=== PATIENT | female | born 1955 | race Caucasian/White ===

== ENCOUNTER 2019-10-28 09:49 | Day surgery (SDC) | payer MEDICARE, BC ==
[2019-10-28] MEDS ORDERED: Marcaine 0.5% SDV 10 ML IJ ONE (09:50)
[2019-10-28] MEDS ORDERED: Xylocaine 1% Vial 30 ML PF IJ ONE (09:50)
[2019-10-28] MEDS ORDERED: DIPRIVAN 200 MG/20 ML IV ONE ×2 (11:06→11:17)
[2019-10-28] MEDS ORDERED: Ketamine HCl 50 MG/ML ONE (11:06)
--- NOTE | 2019-10-28 13:03 | XRAY ---
Indication: Right knee genicular nerve block. Intraoperative fluoroscopy was provided for 23 seconds. 3 digital spot images of the right knee submitted for interpretation demonstrates anterior needle tips projecting adjacent to the medial/lateral femoral condyles and medial tibial plateau. Correlate with intraoperative findings/report. Incidental partially visualized total knee arthroplasty.
--- NOTE | 2019-10-28 13:05 | XRAY ---
Indication: Left knee genicular nerve block. Intraoperative fluoroscopy was provided for 17 seconds. 3 digital spot images of the left knee submitted for interpretation demonstrates anterior needle tips projecting adjacent to the medial/lateral femoral condyles and medial tibial plateau. Correlate with intraoperative findings/report. Incidental partially visualized total knee arthroplasty.
--- NOTE | 2019-10-28 13:05 | XRAY ---
23 seconds fluoroscopy time in surgery for right genicular nerve block.
[2019-10-28] MEDS ORDERED: Lactated Ringers 1,000 ML IV ONE (13:49)
--- NOTE | 2019-10-28 14:12 | XRAY ---
17 seconds fluoroscopy time in surgery for left genicular nerve block.
== END 2019-10-28 11:45 | disposition home or self-care (01) ==
LOC: SDC-PAIN 09:49
PROVIDERS: ATTEND Psychiatry & Neurology Pain Medicine
DX: M17.0 Bilateral primary osteoarthritis of knee (principal); I10 Essential (primary) hypertension; R51 Headache; K21.9 Gastro-esophageal reflux disease without esophagitis; I51.89 Other ill-defined heart diseases; Z79.899 Other long term (current) drug therapy
CPT/HCPCS: 64454; 73560; 77002; J2001; J2704

== ENCOUNTER 2019-11-25 10:01 | Day surgery (SDC) | payer MEDICARE, BC ==
[2019-11-25] MEDS ORDERED: Marcaine 0.5% SDV 10 ML IJ ONE (10:02)
[2019-11-25] MEDS ORDERED: Depo-Medrol 40 MG/ML IM ONE (10:02)
[2019-11-25] MEDS ORDERED: Xylocaine 1% Vial 30 ML PF IJ ONE (10:02)
[2019-11-25] MEDS ORDERED: Ketamine HCl 50 MG/ML ONE (11:10)
[2019-11-25] MEDS ORDERED: DIPRIVAN 200 MG/20 ML IV ONE ×2 (11:10→11:28)
[2019-11-25] MEDS ORDERED: Lactated Ringers 1,000 ML IV ONE (12:36)
--- NOTE | 2019-11-25 14:09 | XRAY ---
Indication: Left knee genicular nerve block. Intraoperative fluoroscopy was provided for 26 seconds. 2 digital spot images submitted for interpretation demonstrates anterior needle tips projecting adjacent to the medial/lateral femoral condyles and medial tibial plateau. Correlate with intraoperative findings/report. Incidental partially visualized total knee arthroplasty
--- NOTE | 2019-11-25 14:12 | XRAY ---
26 seconds fluoroscopy time in surgery for left genicular nerve block.
== END 2019-11-25 11:47 | disposition home or self-care (01) ==
LOC: SDC-PAIN 10:01
PROVIDERS: ATTEND Psychiatry & Neurology Pain Medicine
DX: M17.12 Unilateral primary osteoarthritis, left knee (principal); I10 Essential (primary) hypertension; K21.9 Gastro-esophageal reflux disease without esophagitis; I05.9 Rheumatic mitral valve disease, unspecified; Z79.899 Other long term (current) drug therapy
CPT/HCPCS: 64624; 73560; 77002; J1030; J2001; J2704

== ENCOUNTER 2019-12-23 13:13 | Day surgery (SDC) | payer MEDICARE, BC ==
[~2019-12-23 13:13] MED LIST: DIPRIVAN 200 MG/20 ML IV ONE; Ketamine HCl 50 MG/ML ONE
[2019-12-23] MEDS ORDERED: Xylocaine 1% Vial 30 ML PF IJ ONE (13:14)
[2019-12-23] MEDS ORDERED: Marcaine 0.5% SDV 10 ML IJ ONE (13:14)
--- NOTE | 2019-12-23 16:29 | XRAY ---
Indication: Right knee genicular nerve ablation. Intraoperative fluoroscopy was provided for 29 seconds. 3 digital spot images submitted for interpretation demonstrates anterior needle tips projecting medial/lateral supracondylar and medial tibial plateau of the right knee. Correlate with intraoperative findings/report. Incidental incompletely visualized total knee arthroplasty.
[2019-12-23] MEDS ORDERED: Lactated Ringers 1,000 ML IV ONE (16:38)
--- NOTE | 2019-12-23 16:39 | XRAY ---
29 seconds fluoroscopy time in surgery for right genicular nerve ablation.
== END 2019-12-23 14:41 | disposition home or self-care (01) ==
LOC: SDC-PAIN 13:13
PROVIDERS: ATTEND Psychiatry & Neurology Pain Medicine
DX: M17.11 Unilateral primary osteoarthritis, right knee (principal); I10 Essential (primary) hypertension; K21.9 Gastro-esophageal reflux disease without esophagitis; R51 Headache; Z79.899 Other long term (current) drug therapy
CPT/HCPCS: 64624; 73560; 77002; J2001; J2704

== ENCOUNTER 2020-07-27 11:15 | Day surgery (SDC) | payer MEDICARE, BC ==
[2020-07-27] MEDS ORDERED: Depo-Medrol 40 MG/ML IM ONE (11:16)
[2020-07-27] MEDS ORDERED: BUPIVACAINE 0.5% VIAL IJ ONE (11:16)
[2020-07-27] MEDS ORDERED: DIPRIVAN 200 MG/20 ML IV ONE (13:34)
[2020-07-27] MEDS ORDERED: Ketamine HCl 50 MG/ML ONE (13:34)
--- NOTE | 2020-07-27 14:21 | XRAY ---
Indication: Left shoulder injection. Intraoperative fluoroscopy was provided for 13 seconds. 2 digital spot images submitted for interpretation demonstrates needle tip projecting over the left glenohumeral joint superiorly. Small amount of contrast injected for needle tip placement. Correlate with intraoperative findings/report.
--- NOTE | 2020-07-27 14:21 | XRAY ---
13 seconds fluoroscopy time in surgery for intra-articular injection of the right shoulder.
[2020-07-27] MEDS ORDERED: Lactated Ringers 1,000 ML IV ONE (14:38)
== END 2020-07-27 13:57 | disposition home or self-care (01) ==
LOC: SDC-PAIN 11:15
PROVIDERS: ATTEND Psychiatry & Neurology Pain Medicine
DX: M19.012 Primary osteoarthritis, left shoulder (principal); I10 Essential (primary) hypertension; R51.9 Headache, unspecified; K21.9 Gastro-esophageal reflux disease without esophagitis; I05.9 Rheumatic mitral valve disease, unspecified; Z79.899 Other long term (current) drug therapy
CPT/HCPCS: 20610; 73030; 77002; J1030; J2704; Q9966

== ENCOUNTER 2021-05-10 14:37 | Day surgery (SDC) | payer MEDICARE, BC ==
[2021-05-10] MEDS ORDERED: Sodium Chloride 0.9% 10 ML FLUSH Syringe IJ ONE (14:38)
[2021-05-10] MEDS ORDERED: Depo-Medrol 40 MG/ML IM ONE (14:38)
[2021-05-10] MEDS ORDERED: Xylocaine 1% Vial 30 ML PF IJ ONE (14:38)
[2021-05-10] MEDS ORDERED: DIPRIVAN 200 MG/20 ML IV ONE ×2 (17:13→17:38)
[2021-05-10] MEDS ORDERED: Lactated Ringers 1,000 ML IV ONE (17:34)
--- NOTE | 2021-05-10 19:19 | XRAY ---
Indication: Lumbar GUERO. Intraoperative fluoroscopy provided for 1 minute 4 seconds. 2 digital spot images submitted for interpretation demonstrates posterior midline needle tip projecting just posterior to L3-L4 interspace. Small amount of contrast injected for needle tip placement. Correlate with intraoperative findings/report.
--- NOTE | 2021-05-11 12:04 | XRAY ---
1 minute and 4 seconds fluoroscopy time in surgery for lumbar GUERO.
== END 2021-05-10 18:15 | disposition home or self-care (01) ==
LOC: SDC-PAIN 14:37
PROVIDERS: ATTEND Psychiatry & Neurology Pain Medicine
DX: M54.16 Radiculopathy, lumbar region (principal); Z79.891 Long term (current) use of opiate analgesic
CPT/HCPCS: 62323; 72100; 77003; J1030; J2001; J2704; Q9966

== ENCOUNTER 2021-06-08 09:55 | Day surgery (SDC) | payer MEDICARE, BC ==
[2021-06-08] MEDS ORDERED: LIDOCAINE HCL 2% 100 MG/5 ML IJ ONE (09:56)
[2021-06-08] MEDS ORDERED: DIPRIVAN 200 MG/20 ML IV ONE (11:53)
--- NOTE | 2021-06-08 12:27 | XRAY ---
Indication: Bilateral L4-S1 MBB. Intraoperative fluoroscopy provided for 22 seconds. Single digital spot image submitted for interpretation demonstrates posterior needle tips projecting over the expected left and right L4-S1 S1 nerve roots. Correlate with intraoperative findings/report.
[2021-06-08] MEDS ORDERED: Lactated Ringers 1,000 ML IV ONE (12:52)
--- NOTE | 2021-06-08 14:15 | XRAY ---
22 seconds fluoroscopy time in surgery for bilateral L4-S1 MBB.
== END 2021-06-08 12:22 | disposition home or self-care (01) ==
LOC: SDC-PAIN 09:55
PROVIDERS: ATTEND Psychiatry & Neurology Pain Medicine
DX: M47.816 Spondylosis without myelopathy or radiculopathy, lumbar region (principal); I10 Essential (primary) hypertension; Z79.899 Other long term (current) drug therapy
CPT/HCPCS: 64493; 64494; 72020; 77002; J2704

== ENCOUNTER 2021-06-28 10:22 | Day surgery (SDC) | payer MEDICARE, BC ==
[2021-06-28] MEDS ORDERED: BUPIVACAINE 0.5% VIAL IJ ONE (10:23)
[2021-06-28] MEDS ORDERED: Depo-Medrol 40 MG/ML IM ONE (10:23)
[2021-06-28] MEDS ORDERED: Lactated Ringers 1,000 ML IV ONE (12:18)
[2021-06-28] MEDS ORDERED: DIPRIVAN 200 MG/20 ML IV ONE (12:46)
[2021-06-28] MEDS ORDERED: MORPHINE SULFATE 2 MG INJ ONE (13:03)
--- NOTE | 2021-06-28 13:26 | XRAY ---
Indication: Bilateral L4-S1 MBB. Intraoperative fluoroscopy provided for 19 seconds. Single digital spot image submitted for interpretation demonstrates posterior needle tips projecting over the expected left and right L4-S1 nerve roots. Correlate with intraoperative findings/report.
--- NOTE | 2021-06-28 13:34 | XRAY ---
19 seconds of fluoroscopy was used in surgery for a bilateral L4-S1 MBB.
== END 2021-06-28 13:15 | disposition home or self-care (01) ==
LOC: SDC-PAIN 10:22
PROVIDERS: ATTEND Psychiatry & Neurology Pain Medicine
DX: M47.816 Spondylosis without myelopathy or radiculopathy, lumbar region (principal); I10 Essential (primary) hypertension; Z79.899 Other long term (current) drug therapy
CPT/HCPCS: 64493; 64494; 72020; 77002; J1030; J2270; J2704

== ENCOUNTER 2021-09-06 10:04 | Day surgery (SDC) | payer MEDICARE, BC ==
[2021-09-06] MEDS ORDERED: Depo-Medrol 40 MG/ML IM ONE (10:05)
[2021-09-06] MEDS ORDERED: Xylocaine 1% Vial 30 ML PF IJ ONE (10:05)
[2021-09-06] MEDS ORDERED: BUPIVACAINE 0.5% VIAL IJ ONE (10:05)
[2021-09-06] MEDS ORDERED: DIPRIVAN 200 MG/20 ML IV ONE ×2 (12:33→12:35)
[2021-09-06] MEDS ORDERED: Lactated Ringers 1,000 ML IV ONE (12:47)
--- NOTE | 2021-09-06 13:36 | XRAY ---
Indication: Right L4-S1 RFA. Intraoperative fluoroscopy provided for 30 seconds. 3 digital spot image submitted for interpretation demonstrates posterior needle tips projecting over the expected right L4-S1 nerve roots. Correlate with intraoperative findings/report.
--- NOTE | 2021-09-06 14:39 | XRAY ---
30 seconds fluoroscopy time in surgery for right L4-S1 RFA.
== END 2021-09-06 13:05 | disposition home or self-care (01) ==
LOC: SDC-PAIN 10:04
PROVIDERS: ATTEND Psychiatry & Neurology Pain Medicine
DX: M47.816 Spondylosis without myelopathy or radiculopathy, lumbar region (principal); Z79.899 Other long term (current) drug therapy
CPT/HCPCS: 64635; 64636; 72100; 77002; J1030; J2001; J2704

== ENCOUNTER 2021-09-13 09:59 | Day surgery (SDC) | payer MEDICARE, BC ==
[2021-09-13] MEDS ORDERED: Depo-Medrol 40 MG/ML IM ONE (10:00)
[2021-09-13] MEDS ORDERED: Xylocaine 1% Vial 30 ML PF IJ ONE (10:00)
[2021-09-13] MEDS ORDERED: BUPIVACAINE 0.5% VIAL IJ ONE (10:00)
[2021-09-13] MEDS ORDERED: Xylocaine-Mpf 2% 5 Ml Vial ONE (11:50)
[2021-09-13] MEDS ORDERED: DIPRIVAN 200 MG/20 ML IV ONE (11:50)
[2021-09-13] MEDS ORDERED: Lactated Ringers 1,000 ML IV ONE (11:58)
--- NOTE | 2021-09-13 14:25 | XRAY ---
Indication: Left L4-S1 RFA. Intraoperative fluoroscopy provided for 25 seconds. 4 digital spot image submitted for interpretation demonstrates posterior needle tips projecting over the expected left L4-S1 nerve roots. Correlate with intraoperative findings/report.
--- NOTE | 2021-09-13 14:49 | XRAY ---
25 seconds of fluoroscopy was used in surgery for a left L4-S1 RFA.
== END 2021-09-13 12:17 | disposition home or self-care (01) ==
LOC: SDC-PAIN 09:59
PROVIDERS: ATTEND Psychiatry & Neurology Pain Medicine
DX: M47.817 Spondylosis without myelopathy or radiculopathy, lumbosacral region (principal); I10 Essential (primary) hypertension; Z79.899 Other long term (current) drug therapy
CPT/HCPCS: 64635; 64636; 72100; 77002; J1030; J2001; J2704

== ENCOUNTER 2021-11-15 11:49 | Day surgery (SDC) | payer MEDICARE, BC ==
[2021-11-15] MEDS ORDERED: Sodium Chloride 0.9(Preservative Free) 10 ML IJ ONE (11:50)
[2021-11-15] MEDS ORDERED: Depo-Medrol 40 MG/ML IM ONE (11:50)
[2021-11-15] MEDS ORDERED: Lactated Ringers 1,000 ML IV ONE (13:22)
[2021-11-15] MEDS ORDERED: DIPRIVAN 200 MG/20 ML IV ONE ×2 (13:32→13:43)
[2021-11-15] MEDS ORDERED: Xylocaine-Mpf 2% 5 Ml Vial ONE (13:32)
--- NOTE | 2021-11-15 16:30 | XRAY ---
Indication: Right L4-S1 transforaminal GUERO. Intraoperative fluoroscopy provided for 1 minutes 9 seconds. 4 digital spot image submitted for interpretation demonstrates posterior needle tips projecting over the expected right L4 and L5 nerve roots. Small amount of contrast injected for needle tip placement. Correlate with intraoperative findings/report.
--- NOTE | 2021-11-15 16:45 | XRAY ---
1 minute 9 seconds of fluoroscopy was used in surgery for a right L4-S1 transforaminal GUERO.
== END 2021-11-15 14:07 | disposition home or self-care (01) ==
LOC: SDC-PAIN 11:49
PROVIDERS: ATTEND Psychiatry & Neurology Pain Medicine
DX: M54.16 Radiculopathy, lumbar region (principal); I10 Essential (primary) hypertension; Z79.899 Other long term (current) drug therapy
CPT/HCPCS: 64483; 64484; 72100; 77003; J1030; J2704; Q9966

== ENCOUNTER 2021-12-12 07:56 | Day surgery (SDC) | payer MEDICARE, BC ==
[2021-12-12] MEDS ORDERED: Epinephrine Preservative Free 1 MG/ML IJ ONE (07:57)
[2021-12-12] MEDS ORDERED: LIDOCAINE HCL 1% 50 MG/5 ML VL PF IJ ONE (07:57)
[2021-12-12] MEDS ORDERED: Lactated Ringers 1,000 ML IV ONE (08:50)
[2021-12-12] MEDS ORDERED: Ak-Dilate OPHTHALMIC*** 1.065 ML, Cyclogyl 1% OPHTH SOL 1.065 ML, GATIFLOXACIN 0.5% OPH... OP ONE ×4 (09:00)
[2021-12-12] MEDS ORDERED: TETRACAINE 0.5% STERI-UNIT SOL OP ONE ×2 (09:00)
[2021-12-12] MEDS ORDERED: BETADINE 5% OPHTHALMIC 30 ML OP ONE (09:00)
[2021-12-12] MEDS ORDERED: cefUROXime sodium 0.005 GM in Sodium Chloride Flush 30 ML*** 0.5 ML IJ ONE (09:00)
[2021-12-12] MEDS ORDERED: NON-FORMULARY ITEM OP ONE (09:00)
[2021-12-12] MEDS ORDERED: Lactated Ringers 1,000 ML IV SCH (09:00)
[2021-12-12] MEDS ORDERED: Xylocaine-Mpf 2% 5 Ml Vial ONE (10:03)
[2021-12-12] MEDS ORDERED: DIPRIVAN 200 MG/20 ML IV ONE (10:04)
[2021-12-12 10:48] VITALS: O2SAT 98
[2021-12-12] MEDS ORDERED: Zofran 4 MG/2 ML VIAL IV PRN (12:00)
[2021-12-12] MEDS ORDERED: ACETAZOLAMIDE 250 MG TABLET PO ONE (12:00)
[2021-12-12 13:49] VITALS: BP 121/68; PULSE 63
== END 2021-12-12 11:15 | disposition home or self-care (01) ==
LOC: SDC 07:56
PROVIDERS: ATTEND Ophthalmology
DX: H25.811 Combined forms of age-related cataract, right eye (principal)
CPT/HCPCS: C1780; J0171; J2001; J2704; A9270-GY

== ENCOUNTER 2022-08-24 06:00 | Day surgery (SDC) | payer MEDICARE, BC ==
[2022-08-24] MEDS ORDERED: Kenalog-40 IM ONE (06:01)
[2022-08-24] MEDS ORDERED: CLINDAMYCIN-D5W 900 MG/50 ML*** 900 MG/50 ML BAG IV STA (06:02)
[2022-08-24] MEDS ORDERED: Lactated Ringers 1,000 ML IV SCH (06:30)
[2022-08-24] MEDS ORDERED: Versed 2 MG/2 ML Injection ONE (07:07)
[2022-08-24] MEDS ORDERED: Xylocaine-Mpf 2% 5 Ml Vial ONE (07:07)
[2022-08-24] MEDS ORDERED: SUBLIMAZE 100 MCG/2 ML ONE (07:07)
[2022-08-24] MEDS ORDERED: DIPRIVAN 200 MG/20 ML IV ONE (07:07)
[2022-08-24] MEDS ORDERED: Marcaine Mpf 0.5% Vial 30 Ml ONE (07:13)
[2022-08-24] MEDS ORDERED: Xylocaine 1% Vial 30 ML PF IJ ONE (07:13)
[2022-08-24] MEDS ORDERED: Kenalog-40 ONE (07:13)
[2022-08-24 08:22] VITALS: BP 137/74; PULSE 74; O2SAT 96
--- NOTE | 2022-08-24 08:22 | XRAY ---
Indication: Multiple right foot injections. Intraoperative fluoroscopy provided for 28 seconds. 7 digital spot images submitted for interpretation demonstrates multiple needle tips projecting over the tarsometatarsal junction. Correlate with intraoperative findings/report.
--- NOTE | 2022-08-24 08:25 | XRAY ---
28 seconds fluoroscopy time in surgery for mutiple injections of the right foot.
--- NOTE | 2022-08-27 10:14 | OP ---
SURGERY DATE: 08/24/2022 0718 PREOPERATIVE DIAGNOSES: 1) Right foot pain. 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 POSTOPERATIVE DIAGNOSES: 1) Right foot pain. 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 PROCEDURE: Injections under fluoroscopic guidance multiple joints. SURGEON: Jese Servin DPM. TOY PARTS FORMER SUPERVISOR: None. ANESTHESIA: MAC sedation. HEMOSTASIS: Pressure dressing. ESTIMATED BLOOD LOSS: Minimal. MATERIALS: None. INJECTABLES: 18 cc of a 1:1 mixture of 1% lidocaine plain and 0.5% Marcaine plain and 3 cc of 40 mg/kg Kenalog for a total of 21 cc total. INDICATION FOR SURGERY: Mile is a very pleasant 67-year-old female known to my service for osteoarthritis to her right foot. The patient has failed conservative therapy with orthotics in the past and anti-inflammatories. At this time the patient is desperate for some relief and we are very close to planning for surgical intervention. However due to the nature of how many injections would be provided due to the level of osteoarthritis to determine diagnostically and therapeutically if her pain would be managed. We have decided to proceed with injections under fluoroscopic guidance at this time. The patient understands all risks, benefits and complications of the injection. Plenty of time was allowed for the patient to ask questions prior to the procedure. It is with that we decided to proceed. DESCRIPTION OF PROCEDURE AND FINDINGS: The patient was brought to the OR and placed on the OR table in the supine position. At this time monitored anesthesia care was applied until the patient was sedated. The right foot was prepped and draped in typical sterile fashion. At this time attention was directed under fluoroscopic guidance to the tarsometatarsal joints one through five as well as the navicular cuneiform joints. Once the 27 gauge needle was placed in the appropriate position just proximal to the sites of interest, the injection needle was advanced and steroid was injected. At this time the needles were withdrawn. Iodine was utilized to cleanse the dorsal aspect of the right foot and large Band-Aid's were applied to the injection sites. The patient was then reversed from anesthesia and returned to the postoperative anesthesia care unit with vital signs stable and vascular status intact. The patient handled the procedure as well as the anesthesia without significant complication. Postoperative orders as indicated in the patient's discharge chart.
== END 2022-08-24 08:39 | disposition home or self-care (01) ==
LOC: SDC 06:00
PROVIDERS: ATTEND Podiatrist Foot & Ankle Surgery
DX: M19.071 Primary osteoarthritis, right ankle and foot (principal); M79.671 Pain in right foot
CPT/HCPCS: 73630; 77002; J2001; J2250; J2704; J3010; J3301

== ENCOUNTER 2022-10-17 10:14 | Day surgery (SDC) | payer MEDICARE, BC ==
[2022-10-17] MEDS ORDERED: BUPIVACAINE 0.5% VIAL IJ ONE (10:15)
[2022-10-17] MEDS ORDERED: Depo-Medrol 40 MG/ML IM ONE (10:15)
[2022-10-17] MEDS ORDERED: DIPRIVAN 200 MG/20 ML IV ONE (12:03)
[2022-10-17] MEDS ORDERED: Xylocaine-Mpf 2% 5 Ml Vial ONE (12:04)
--- NOTE | 2022-10-17 12:30 | XRAY ---
Indication: Right SI joint injection. Intraoperative fluoroscopy provided for 13 seconds. 2 digital spot images submitted for interpretation demonstrates posterior needle tip projecting over the right SI joint. Correlate with intraoperative findings/report.
--- NOTE | 2022-10-17 12:54 | XRAY ---
13 seconds of fluoroscopy was used in surgery for a right sacroiliac joint injection.
[2022-10-17] MEDS ORDERED: Lactated Ringers 1,000 ML IV ONE (14:06)
== END 2022-10-17 12:30 | disposition home or self-care (01) ==
LOC: SDC-PAIN 10:14
PROVIDERS: ATTEND Psychiatry & Neurology Pain Medicine
DX: M46.1 Sacroiliitis, not elsewhere classified (principal); Z79.899 Other long term (current) drug therapy
CPT/HCPCS: 01992; 27096; 72170; 77002; G0260; J1030; J2704

== ENCOUNTER 2023-05-05 19:09 | Emergency (ER) | payer MEDICARE, BC ==
[2023-05-05] MEDS ORDERED: Hydromorphone 1 mg/ml Injection IV ONE (20:04)
--- NOTE | 2023-05-05 20:04 | ERPHSYRPT ---
- History of Present Illness Time Seen by Provider: 05/05/23 19:45 Source: patient Exam Limitations: no limitations Physician History: Reportedly pt fell at home on her bottom at 5 AM today with resultant pain in her lower back, right hip and right knee. Pt denies fever, cough, chest pain, shortness of air, abdominal pain, nausea, vomiting, diarrhea, dysuria. Allergies/Adverse Reactions: cephalexin monohydrate [From Keflex] Allergy (Verified 05/05/23 20:17) Penicillins Allergy (Verified 05/05/23 20:17) Home Medications: Duloxetine HCl [Cymbalta] 60 mg PO BID 02/07/16 [History] Lisinopril 10 mg [Zestril 10 MG] 5 mg PO DAILY 02/07/16 [History] Omeprazole 20 MG [Prilosec 20 mg] 40 mg PO DAILY 02/07/16 [History] Pramipexole Di-HCl 0.5 mg [Mirapex 0.5 MG Tablet] 1 mg PO HS 02/07/16 [History] Metoprolol Succinate 25 mg PO DAILY 09/30/17 [History] Atorvastatin Calcium [Lipitor] 20 mg PO HS 12/07/21 [History] Cholecalciferol (Vitamin D3) [Vitamin D3] 2,000 unit PO BID 12/07/21 [History] Furosemide 20 mg [Lasix 20 mg] 80 mg PO BID 12/07/21 [History] Hydrocodone/Acetaminophen [Hydrocodone-Acetamin 10-325 mg] 1 each PO TIDPRN PRN 12/07/21 [History] Ranolazine 500 MG [Ranexa 500 MG] 1,000 mg PO BID 12/07/21 [History] Albuterol Sulfate [Proair Respiclick] 2 puffs IH Q6-8HPRN PRN 08/15/22 [History] Nitroglycerin 0.4 mg SL Q5MIN PRN MR X 3 PRN 08/15/22 [History] Potassium Chloride 20 meq PO TID 08/15/22 [History] Topiramate 100 mg [Topamax 100 MG] 100 mg PO BID 08/15/22 [History] Hx Tetanus, Diphtheria Vaccination/Date Given: No Hx Influenza Vaccination/Date Given: No Hx Pneumococcal Vaccination/Date Given: No Travel Risk - Vaccine Status Have you recieved a Covid-19 vaccination: No - Review of Systems Constitutional: No Fever Ears, Nose, & Throat: No Throat Pain Respiratory: No Cough, No Dyspnea Cardiac: No Chest Pain Abdominal/Gastrointestinal: No Abdominal Pain, No Nausea, No Vomiting, No Diarrhea Genitourinary Symptoms: No Dysuria Musculoskeletal: Back Pain, Joint Pain (right hip and right knee) Neurological: No Headache - Past Medical History Pertinent Past Medical History: Yes Neurological History: Peripheral Neuropathy ENT History: Cataracts Cardiac History: Angina, Hypertension Respiratory History: Asthma Endocrine Medical History: No Pertinent History Musculoskeletal History: Fractures, Osteoarthritis, Osteoporosis GI Medical History: GERD, Hemorrhoids History: No Pertinent History Psycho-Social History: No Pertinent History Female Reproductive Disorders: No Pertinent History Other Medical History: RIGHT KNEE SURGERY X 4 INCLUDING TKR AND REVISION, LEFT KNEE SURGERY X 2 WITH TKR AND TIBIAL RACHELLE FOR STRESS FRACTURE. FX LEFT WRIST WITH HX ORIF. HX BILATERAL SHOULDER REPLACEMENTS. - Past Surgical History Past Surgical History: Yes Neuro Surgical History: No Pertinent History Cardiac: Cardiac Catheterization Respiratory: No Pertinent History Gastrointestinal: Cholecystectomy Genitourinary: No Pertinent History Musculoskeletal: Joint Replacement Female Surgical History: Hysterectomy Other Surgical History: 2 sinus surgeries, melania knee and melania shoulder replacement - Social History Smoking Status: Never smoker Exposure to second hand smoke: No Drug Use: none Patient Lives Alone: No - Nursing Vital Signs Nursing Vital Signs: Initial Vital Signs Temperature 98.1 F 05/05/23 19:46 Pulse Rate 71 05/05/23 19:46 Respiratory Rate 18 05/05/23 19:46 Blood Pressure 100/62 05/05/23 19:46 O2 Sat by Pulse Oximetry 99 05/05/23 19:46 Pain Scale Pain Intensity 4 - Physical Exam General Appearance: alert Eye Exam: PERRL/EOMI, eyes nml inspection Ears, Nose, Throat Exam: TMs normal, pharynx normal Neck Exam: non-tender Respiratory Exam: normal breath sounds, airway intact Cardiovascular Exam: normal heart sounds Gastrointestinal Exam: soft, normal bowel sounds Back Exam: vertebral tenderness (lower L-spine), decreased range of motion Extremity Exam: limited range of motion (right hip & knee have limited flexion) Peripheral Pulses: dorsalis-pedis (R): 1+, dorsalis-pedis (L): 1+ Neurologic Exam: alert, cooperative, sensation nml Skin Exam: warm, dry - Radiology Exams Femur X-ray Interpretation: Teleradiologist Report (A small calcific focus adjacent to the greater trochanter could be clacific tendinopathy. Mild osteoarthritic changes at the right hip joint. The right knee joint is showing intact total knee prosthesis without features of loosening or other complications. The visualized right femur is intact.) Right Knee X-ray Interpretation: Teleradiologist Report (The intact total knee prosthesis of the right knee joint without features of loosening or any other complication. A correlation with previous X-rays/studies may be suggested.) - CT Exams Pelvis CT Interpretation: Tele-radiologist Report (No fracture or dislocation noted in this CT pelvis. Moderate degenerative osteoarthropathy of both hip joints. Redomonstration of right gluteal muscle tendinopathy.) Lumbar Spine CT Interpretation: Tele-radiologist Report (Marked lumbar spondylosis with degenerative changes noted at all the lumbar levels and at thoraco-lumbar junction causing moderate to severe neural foraminal stenosis and nerve root compression. No acute fracture or dislocation noted.) Ordered Tests: Active Orders 24 hr Category Date Time Status IV Insertion STAT Care 05/05/23 20:04 Active FEMUR Stat Exams 05/05/23 20:07 Completed KNEE (3 VIEWS) Stat Exams 05/05/23 20:07 Completed LUMBAR SPINE W/O [CT] Stat Exams 05/05/23 20:06 Completed PELVIS WITHOUT CONTRAST [CT] Stat Exams 05/05/23 20:05 Completed BMP Stat Lab 05/05/23 20:15 Completed CBC W DIFF Stat Lab 05/05/23 20:15 Completed CULTURE,URINE Stat Lab 05/05/23 23:54 Received UA W/RFX UR CULTURE Stat Lab 05/05/23 23:54 Completed Medication Summary Generic Name Dose Route Start Last Admin Trade Name Freq PRN Reason Stop Dose Admin Sodium Chloride 1,000 mls @ 100 mls/hr 05/05/23 20:15 05/05/23 20:24 Sodium Chloride 0.9% 1000 Ml IV 06/04/23 20:14 100 mls/hr .Q10H JOSUE Administration Discontinued Medications Generic Name Dose Route Start Last Admin Trade Name Freq PRN Reason Stop Dose Admin Hydromorphone HCl 0.5 mg 05/05/23 20:04 05/05/23 20:23 Hydromorphone 1 Mg/1ml Inj IV 05/05/23 20:05 0.5 mg STAT ONE Administration Hydromorphone HCl Confirm 05/05/23 20:19 Hydromorphone 1 Mg/1ml Inj Administered 05/05/23 20:20 Dose 1 mg .ROUTE .STK-MED ONE Ketorolac Tromethamine 15 mg 05/05/23 23:18 05/05/23 23:23 Ketorolac Tromethamine 30 Mg/Ml Inj IV 05/05/23 23:19 15 mg STAT ONE Administration Ketorolac Tromethamine Confirm 05/05/23 23:22 Ketorolac Tromethamine 30 Mg/Ml Inj Administered 05/05/23 23:23 Dose 30 mg .ROUTE .STK-MED ONE Nitrofurantoin Macrocrystals 100 mg 05/06/23 00:09 Nitrofurantoin Macro 100 Mg Capsule PO 05/06/23 00:10 STAT ONE Lab/Rad Data: Laboratory Result Diagrams 05/05/23 20:15 05/05/23 20:15 Laboratory Results 05/05/23 05/05/23 05/05/23 Range/Units 23:54 20:15 20:15 WBC 6.3 (4.0-10.5) x10^3/uL RBC 3.34 L (4.1-5.4) x10^6/uL Hgb 9.9 L (12.0-16.0) g/dL Hct 31.2 L (35-47) % MCV 93.4 (78-100) fL MCH 29.6 (26-32) pg MCHC 31.7 L (32-36) g/dL RDW 13.2 (11.5-14.0) % Plt Count 185 (150-450) x10^3/uL MPV 8.4 (7.5-11.0) fL Gran % 46.0 (36.0-66.0) % Immature Gran % (Auto) 0.3 (0.00-0.4) % Nucleat RBC Rel Count 0.0 (0.00-0.1) % Eos # (Auto) 0.19 (0-0.5) x10^3/uL Immature Gran # (Auto) 0.02 (0.00-0.03) x10^3u/L Absolute Lymphs (auto) 2.75 (1.0-4.6) x10^3/uL Absolute Monos (auto) 0.41 (0.0-1.3) x10^3/uL Absolute Nucleated RBC 0.00 (0.00-0.01) x10^3u/L Lymphocytes % 43.6 (24.0-44.0) % Monocytes % 6.5 (0.0-12.0) % Eosinophils % 3.0 (0.00-5.0) % Basophils % 0.6 (0.0-0.4) % Absolute Granulocytes 2.90 (1.4-6.9) x10^3/uL Basophils # 0.04 (0-0.4) x10^3/uL Sodium 138 (137-145) mmol/L Potassium 3.8 (3.5-5.1) mmol/L Chloride 102 (98-107) mmol/L Carbon Dioxide 31 H (22-30) mmol/L Anion Gap 8.7 (5-15) MEQ/L BUN 24 H (7-17) mg/dL Creatinine 1.14 H (0.52-1.04) mg/dL Estimated GFR 52.4 ML/MIN Glucose 111 H (74-106) mg/dL Calcium 8.9 (8.4-10.2) mg/dL Urine Color Yellow (Yellow) Urine Appearance Clear (Clear) Urine pH 6.0 (4.6-8.0) Ur Specific [place] 1.010 (1.005-1.030) Urine Protein Negative (Negative) Urine Glucose (UA) Negative (Negative) mg/dL Urine Ketones Negative (Negative) Urine Blood Negative (Negative) Urine Nitrite Positive A (Negative) Urine Bilirubin Negative (Negative) Urine Urobilinogen 0.2 (0.2) mg/dL Ur Leukocyte Esterase Moderate A (Negative) U Hyaline Cast (Auto) NONE SEEN (0-2) /LPF Urine Microscopic RBC 0-2 (0-5) /HPF Urine Microscopic WBC 21-50 A (0-5) /HPF Ur Epithelial Cells Rare (None Seen) /HPF Urine Bacteria Many A (None Seen) /HPF Urine Culture Reflexed YES (NO) - Progress Progress: improved Counseled pt/family regarding: lab results, diagnosis, need for follow-up, rad results Medical Desision Making - Diagnostic Testing Diagnostic test were ordered, analyzed, and reviewed by me: Yes Radiological Interpretation: Teleradiologist Report - Departure Departure Disposition: Home Clinical Impression: UTI (urinary tract infection), Fall, Lower back pain, pain in right knee, Hip pain Condition: Stable Critical Care Time: No Referrals: LETICIA LUCERO [Primary Care Provider] - Follow up/PCP as directed Instructions: Preventing falls in adults, Urinary tract infections in adults, Low back pain in adults Additional Instructions: Follow up with private doctor today. Prescriptions: Ketorolac Trometh 10 mg Tab [TORAdol 10 MG TABLET] 10 mg PO Q8HPRN PRN #15 tablet PRN Reason: Pain Nitrofurantoin Macro 100 mg [Macrobid 100MG Capsule] 100 mg PO BID #14 cap
[2023-05-05 20:11] VITALS: TEMP 98.1
[2023-05-05] MEDS ORDERED: Sodium Chloride 0.9% 1000 ML 1,000 ML IV SCH (20:15)
[2023-05-05] MEDS ORDERED: Hydromorphone 1 mg/ml Injection ONE (20:19)
[2023-05-05] MEDS ORDERED: Sodium Chloride 0.9% 1000 ML 1,000 ML ONE (20:19)
[2023-05-05 20:20] LABS: BASOPHIL % 0.6 % (0.0-0.4); Basophil (Absolute #) 0.04 x10^3/uL (0-0.4); Eosinophil (Absolute #) 0.19 x10^3/uL (0-0.5); Hematocrit 31.2 % (35-47); Hemoglobin 9.9 g/dL (12.0-16.0); IMMATURE GRAN # 0.02 x10^3u/L (0.00-0.03); IMMATURE GRAN % 0.3 % (0.00-0.4); Lymphocyte (Absolute #) 2.75 x10^3/uL (1.0-4.6); Lymphocytes % 43.6 % (24.0-44.0); Mean Cell Volume 93.4 fL (78-100); Mean Corpuscular Hemoglobin 29.6 pg (26-32); Mean Corpuscular Hgb Concent. 31.7 g/dL (32-36); Mean Platelet Volume 8.4 fL (7.5-11.0); Monocyte (Absolute #) 0.41 x10^3/uL (0.0-1.3); Monocytes % 6.5 % (0.0-12.0); Platelet Count 185 x10^3/uL (150-450); Red Blood Count 3.34 x10^6/uL (4.1-5.4); Red Cell Distribution Width 13.2 % (11.5-14.0); White Blood Count 6.3 x10^3/uL (4.0-10.5)
[2023-05-05 20:34] LABS: ANION GAP 8.7 MEQ/L (5-15); Calcium 8.9 mg/dL (8.4-10.2); Creatinine 1 1.14 mg/dL (0.52-1.04); EST GLOMERULAR FILTRATION RATE 52.4 ML/MIN; Potassium 3.8 mmol/L (3.5-5.1)
--- NOTE | 2023-05-05 21:50 | XRAY ---
CLINICAL HISTORY:pain COMPARISON:Previous X-ray hip dated 03/21/2023 was also reviewed. TECHNIQUE:CT pelvis was without intravenous contrast administration and with sagittal and coronal reconstructions. FINDINGS: Bone density is moderately reduced. Moderate degenerative changes are seen in the form of osteophyte formation and vaccum phenomenon. Both hip joints show normal rounded contour. No evidence of articular collapse. The joint spaces are normal. No loose bodies. There is no evidence of joint effusion. Bilateral sacroiliac joints appear normal. Redemonstration of right gluteal muscle tendinopathy in the form of dense calcifications along right greater trochanter. Small subchondral cysts are noted along endplates of visualized vertebral bodies. No evidence of obvious fracture or dislocation. No lytic or sclerotic bone lesions. The visualized soft tissues are normal. IMPRESSION: 1. No acute fracture or dislocation noted in this CT pelvis. 2. Moderate degenerative osteoarthropathy of both hip joints. 3. Redemonstration of right gluteal muscle tendinopathy. Electronically Signed by: Millie Piedra MD. (05/05/2023 20:49:25 STRUCTURAL STEEL EQUIPMENT ERECTOR)
--- NOTE | 2023-05-05 22:21 | XRAY ---
CLINICAL HISTORY:pain COMPARISON:None. TECHNIQUE:CT scan of lumbar spine was performed without contrast. Axial images were obtained with reconstructed coronal and sagittal images and submitted for interpretation. FINDINGS: Preserved physiological lumbar lordosis. Mild scoliotic deformity is noted with convexity to right. Marked degnerative changes are noted in the form of extensive osteophyte formation and vacuum phenomenon. Normal vertebral bodies heights are seen with multilevel schmorl node formation. No definite fractures or facet joint dislocations could be detected. Multilevel facet joint arthropathy is noted. Segmental disc analysis level by level: T11-12: Dense calcification of intervertebral disc space with calcification of anterior and posterior lognitudinal ligament is noted. Disco-osteophytic bulge of 2.2 mm is noted indenting the anterior thecal sac without any significant spinal canal or neural foraminal stenosis. T12-L1: Focal calcification of posteriro longitudinal ligament is noted. A diffuse disc bulge of 2.0 mm is noted indenting the anterior thecal sac without spinal canal or neural foraminal stenosis. L1- L2: Disco-osteophytic bulge of 4.5 mm is noted indenting the anterior thecal sac without any significant spinal canal stenosis. Mild neural foraminal stenosis seen bilaterally with mild nerve root compression. L2- L3 : Disco-osteophytic bulge of 6.5 mm is noted indenting the anteriro thecal sac . No spinal canaal stenosis. Moderate narrowing of both neural foramina with moderate nerve root compression. Reduced intervertebral disc height is also noted. L3- L4: Markedly reduced disc height with endplate erosions and sclerosis seen. Disco-osteophytic bulge of 10.0 mm is noted indenting the anterior thecal sac with mild spinal canal stenosis. Moderate to severe neural foraminal stenosis seen bilaterally with nerve root compression. L4- L5: Reduced intervertebral disc space is noted with endplate erosions and subchondral cysts. Disco-osteophytic bulge of 6.5 mm is noted indenting the anterior thecal sac with moderate spinal canal stenosis. Moderate to severe neural foraminal stenosis seen bilaterally with markednerve root compression. L5- S1: Reduced intervertebral disc space is noted with endplate erosions and subchondral cysts. Disco-osteophytic bulge of 6.0 mm is noted indenting the anterior thecal sac with moderate spinal canal stenosis. Moderate neural foraminal stenosis seen bilaterally with moderate nerve root compression. No retro or paraspinal soft tissue masses. No developmental canal stenosis. IMPRESSION: 1. Marked lumbar spondylosis with degenerative changes noted at all the lumbar levels and at thoraco-lumbar junction causing moderate to severe neural foraminal stenosis and nerve root compression. 2. No acute fracture or dislocation noted. Electronically Signed by: Millie Piedra MD. (05/05/2023 21:20:00 DRIVER TRAINER)
--- NOTE | 2023-05-05 22:51 | XRAY ---
CLINICAL HISTORY:pain COMPARISON:None. TECHNIQUE:The x-ray examination of the right femur bone is performed in AP/lateral, including right hip and right knee joints, 4 views. FINDINGS: A small calcific focus adjacent to the greater trochanter could be calcific tendinopathy. The right knee joint is showing intact total knee prosthesis without features of loosening or other complications. The visualized right femur is intact. Mild osteoarthritic changes at the right hip joint. Bone density is normal. Soft tissues are unremarkable. IMPRESSION: A small calcific focus adjacent to the greater trochanter could be calcific tendinopathy. Mild osteoarthritic changes at the right hip joint. The right knee joint is showing intact total knee prosthesis without features of loosening or other complications. The visualized right femur is intact. DISCLAIMER:A subtle bone abnormality or fracture may not be readily apparent on X-rays, thus clinical correlation and further imaging including follow-up CT, MRI, or follow-up X-rays are advised as needed. Electronically Signed by: Millie Piedra MD. (05/05/2023 21:50:38 POLY AREA SUPERVISOR)
--- NOTE | 2023-05-05 23:04 | XRAY ---
CLINICAL HISTORY:pain COMPARISON:None. TECHNIQUE:X-ray examination of right knee joint was performed in 3 views: AP, lateral and oblique views. FINDINGS: The intact total knee prosthesis of the right knee joint without features of loosening or any other complication. A small bony fragment at the inferior aspect of the patella bone. A few periarticular soft tissue calcific foci are seen around the right knee joint possibly loose body shadows. Bone density appears to reduce the visualized bones. Subtle soft tissue swelling is noted at the right knee joint. IMPRESSION: The intact total knee prosthesis of the right knee joint without features of loosening or any other complication. A correlation with previous X-rays/studies may be suggested. DISCLAIMER:A subtle bone abnormality or fracture may not be readily apparent on X-rays, thus clinical correlation and further imaging including follow-up CT, MRI, or follow-up X-rays are advised as needed. Electronically Signed by: Millie Piedra MD. (05/05/2023 22:03:07 [employer])
[2023-05-05 23:13] VITALS: RESP 16
[2023-05-05] MEDS ORDERED: TORAdol 30 mg Injection IV ONE (23:18)
[2023-05-05] MEDS ORDERED: TORAdol 30 mg Injection ONE (23:22)
[2023-05-06 00:02] LABS: Appearance Clear (Clear); Bacteria Many /HPF (None Seen); Bilirubin Negative (Negative); Blood Negative (Negative); Epithelial Cells Rare /HPF (None Seen); Glucose, Urine Negative (Negative); Hyaline Casts NONE SEEN /LPF (0-2); Ketones Negative (Negative); Leukocyte Esterase Moderate (Negative); Nitrite Positive (Negative); Protein,Urine Dip Negative (Negative); RBC 0-2 /HPF (0-5); Urobilinogen 0.2 mg/dL (0.2); WBC 21-50 /HPF (0-5)
[2023-05-06 00:05] LABS: ADD URINE CULTURE? YES (NO)
[2023-05-06] MEDS ORDERED: Macrobid 100MG Capsule PO ONE (00:09)
[2023-05-06] MEDS ORDERED: Macrobid 100MG Capsule ONE (00:27)
[2023-05-06 01:07] VITALS: BP 99/58; PULSE 73; O2SAT 97
== END 2023-05-06 01:01 | disposition home or self-care (01) ==
LOC: ED 19:09
DX: N39.0 Urinary tract infection, site not specified (principal); M54.50 Low back pain, unspecified; M25.561 Pain in right knee; M25.551 Pain in right hip; W19.XXXA Unspecified fall, initial encounter; I10 Essential (primary) hypertension; Z79.891 Long term (current) use of opiate analgesic; Z79.899 Other long term (current) drug therapy; Z28.310 Unvaccinated for COVID-19
CPT/HCPCS: 36000; 36415; 72131; 72192; 73552; 73562; 80048; 81001; 85025; 87077; 87086; 87186; 96374; 96375; 99284; J1170; J1885; A9270-GY

== ENCOUNTER 2023-12-24 05:56 | Day surgery (SDC) | payer MEDICARE, BC ==
[2023-12-24] MEDS: Lactated Ringers 1,000 ML IV SCH (06:16)
[2023-12-24] MEDS ORDERED: Kenalog-40 ONE (06:22)
[2023-12-24] MEDS ORDERED: Marcaine Mpf 0.5% Vial 30 Ml ONE (06:22)
[2023-12-24] MEDS ORDERED: XYLOCAINE 1% HCL 20 ML MDV ONE (06:23)
[2023-12-24 06:29] VITALS: RESP 16
[2023-12-24] MEDS ORDERED: SUBLIMAZE 100 MCG/2 ML ONE (07:01)
[2023-12-24] MEDS ORDERED: Versed 2 MG/2 ML Injection ONE (07:01)
[2023-12-24] MEDS ORDERED: DIPRIVAN 200 MG/20 ML IV ONE (07:01)
[2023-12-24] MEDS ORDERED: Xylocaine-Mpf 2% 5 Ml Vial ONE (07:01)
[2023-12-24 07:56] VITALS: O2SAT 98
[2023-12-24 08:04] VITALS: TEMP 96.7
[2023-12-24 08:13] VITALS: BP 138/72; PULSE 68
--- NOTE | 2023-12-24 09:34 | XRAY ---
Indication: Right foot injection. Intraoperative fluoroscopy provided for 31 seconds. 7 digital spot images submitted for interpretation demonstrates multiple needle tips projecting over tarsal and tarsometatarsal articulation. Correlate with intraoperative findings/report.
--- NOTE | 2023-12-24 13:39 | XRAY ---
31 seconds of fluoroscopy was used in surgery for a right foot injection.
--- NOTE | 2023-12-25 23:17 | OP ---
SURGERY DATE/TIME: 12/24/2023 1088 - 6095 PREOPERATIVE DIAGNOSES: 1) Right ankle effusion. 2) Midfoot osteoarthritis. 3) Right foot pain. 4) Right ankle pain. POSTOPERATIVE DIAGNOSES: 1) Right ankle effusion. 2) Midfoot osteoarthritis. 3) Right foot pain. 4) Right ankle pain. PROCEDURES: 1) Injection ankle, right, under fluoroscopic guidance. 2) Injection of talonavicular joint under fluoroscopic guidance, right. 3) Injection of naviculocuneiform joint under fluoroscopic guidance. 4) Injection of tarsometatarsal joints 1, 2 and 3 under fluoroscopic guidance. SURGEON: Jese Servin MD [employer]ER: None. ANESTHESIA: Monitored anesthesia care. HEMOSTASIS: Pressure dressing. ESTIMATED BLOOD LOSS: None. MATERIALS: None. INDICATIONS: The patient is a very pleasant 68-year-old female who is well known to my service. She is not a good surgical candidate, however, given her previous history with injections back in early 2022, with some resolution of her pain for approximately 6 to 8 months following the injections. Patient returns today and wishes to proceed with a similar procedure in order to alleviate some of her pain. Patient has been made aware of all risks, complications, and benefits of surgical intervention at this time including, but not limited to, infection, hematoma, seroma, possibility of delayed wound healing, non-wound healing, and possible need for further surgical intervention at a later date. No guarantees were provided as to the outcome of surgical intervention at this time, so at this time, we have proceeded. DESCRIPTION OF PROCEDURE AND FINDINGS: Patient was brought to the operating room, placed on the operating room table in the supine position. At this time, monitored anesthesia care was administered until the patient was adequately sedated. The right foot was prepped and draped in the septic fashion utilizing ChloraPrep and draped off. The fluoroscopy was brought in, first identifying the ankle joint and providing an injection consisting of 1 mL of Kenalog as well as 2 mL of 1% lidocaine plain and 2 mL of 0.5 bupivacaine plain. Following this, an injection consisting of 0.5 Kenalog, 0.5 dexamethasone, 0.5 lidocaine and 0.5 bupivacaine were injected into the talonavicular joint under fluoroscopic guidance. The naviculocuneiform joint and tarsometatarsal joints 1, 2 and 3 of the right foot. This was checked utilizing fluoroscopic guidance in order to get the steroid into the joints to the best of our ability. From that standpoint, the injection sites were covered with iodine and a Band-Aid. Patient was then reversed from anesthesia and returned to the postoperative anesthesia care unit with vital signs stable and vascular status intact. The patient handled the anesthesia as well as the procedure without significant complication. Postoperative orders as indicated in the patient's discharge chart.
== END 2023-12-24 08:15 | disposition home or self-care (01) ==
LOC: SDC 05:56
PROVIDERS: ATTEND Podiatrist Foot & Ankle Surgery
DX: M25.471 Effusion, right ankle (principal); M19.071 Primary osteoarthritis, right ankle and foot; M79.671 Pain in right foot; M25.571 Pain in right ankle and joints of right foot
CPT/HCPCS: 20600; 20605; 73630; 76000; J2250; J2704; J3010; J3301